=== PATIENT | male | born 1950 | race Caucasian/White ===

== ENCOUNTER 2017-05-02 14:25 | Emergency (ER) | payer MEDICARE ==
[2017-05-02] MEDS ORDERED: TORADOL IM ONE (17:33)
[2017-05-02] MEDS ORDERED: DELTASONE PO ONE (17:34)
--- NOTE | 2017-05-02 18:42 | Emergency Department Report ---
ED Lower Extremity HPI - General Chief Complaint: Extremity Injury, Lower Stated Complaint: FOOT PAIN Time Seen by Provider: 05/02/17 17:24 Source: patient, EMS Mode of arrival: Wheelchair Limitations: Physical Limitation - History of Present Illness Initial Comments: pt is a 66 y/o mail with hx of Asthma, CHF, COPD, DMII, and HIV pos who presents for left ankle pain and swelling s/p glf 3 days ago pt endorses unable to ambulate , pt does indorse hx of gout, pt advises that he call the ambulance to hospital today because he can no longer walk on ankle, pain is 8/10 aching throbbing tingling. Complaint: ankle injury Onset/Timin -: days(s) Injury: Leg: Left (left lateral lower leg pain swelling no ecchymosis no stepoff no ), Ankle: Left (left lateral ankle pain and swelling ) Type of Injury: other (fall Ground Level ) Place: home Severity: moderate Severity scale (0 -10): 7 Improves With: nothing Worsens With: weight bearing, movement, palpation Context: fall Associated Symptoms: swelling, tingling, unable to bear weight - Related Data Previous Rx's Medication Instructions Recorded Last Taken Type Aspirin [Aspirin TAB] 325 mg PO QDAY #30 tablet 01/15/14 Unknown Rx metFORMIN [Glucophage] 500 mg PO DAILY #30 tablet 01/15/14 Unknown Rx Acetaminophen/Codeine [Tylenol 1 tab PO Q6H PRN #30 tab 05/02/17 Unknown Rx /Codeine # 3 tab] Allergies Allergy/AdvReac Type Severity Reaction Status Date / Time No Known Allergies Allergy Verified 05/02/17 15:02 ED Review of Systems ROS: Stated complaint: FOOT PAIN Other details as noted in HPI Constitutional: denies: chills, fever Eyes: denies: eye pain, eye discharge, vision change ENT: denies: ear pain, throat pain Respiratory: denies: cough, shortness of breath, wheezing Cardiovascular: denies: chest pain, palpitations Endocrine: no symptoms reported Gastrointestinal: denies: abdominal pain, nausea, diarrhea Genitourinary: denies: urgency, dysuria Musculoskeletal: joint swelling, arthralgia. denies: back pain, myalgia Skin: denies: rash, lesions Neurological: denies: headache, weakness, paresthesias Psychiatric: denies: anxiety, depression Hematological/Lymphatic: denies: easy bleeding, easy bruising ED Past Medical Hx - Past Medical History Hx Congestive Heart Failure: No Hx Diabetes: Yes Hx Asthma: No Hx COPD: No Hx HIV: No - Social History Smoking Status: Never Smoker Substance Use Type: None - Medications Home Medications: Home Medications Medication Instructions Recorded Confirmed Last Taken Type Aspirin [Aspirin TAB] 325 mg PO QDAY #30 tablet 01/15/14 Unknown Rx metFORMIN [Glucophage] 500 mg PO DAILY #30 tablet 01/15/14 Unknown Rx Acetaminophen/Codeine [Tylenol 1 tab PO Q6H PRN #30 tab 05/02/17 Unknown Rx /Codeine # 3 tab] ED Physical Exam - General Limitations: Physical Limitation General appearance: alert, in no apparent distress - Head Head exam: Present: atraumatic, normocephalic - Eye Eye exam: Present: normal appearance, PERRL, EOMI - ENT ENT exam: Present: mucous membranes moist - Neck Neck exam: Present: normal inspection - Respiratory Respiratory exam: Present: normal lung sounds bilaterally. Absent: respiratory distress - Cardiovascular Cardiovascular Exam: Present: regular rate, normal rhythm. Absent: systolic murmur, diastolic murmur, rubs, gallop - GI/Abdominal GI/Abdominal exam: Present: soft, normal bowel sounds - Rectal Rectal exam: Present: deferred - Extremities Exam Extremities exam: Present: normal inspection, tenderness, normal capillary refill. Absent: calf tenderness - Expanded Lower Extremity Exam Left Hip exam: Present: normal inspection, full ROM Upper Leg exam: Present: normal inspection, full ROM Knee exam: Present: normal inspection, full ROM Lower Leg exam: Present: tenderness, swelling. Absent: abrasion, laceration, ecchymosis, deformity, crepidus, dislocation, erythema, palpable cord, Charity's sign Ankle exam: Present: tenderness, swelling, abrasion. Absent: laceration, ecchymosis, deformity, crepidus, dislocation, erythema, anterior draw sign Foot/Toe exam: Present: normal inspection Neuro vascular tendon exam: Present: no vascular compromise. Absent: pulse deficit, abnormal cap refill, motor deficit, sensory deficit, tendon deficit, extremity cold to touch, pallor, abnormal 2-point discrimination, decreased fine /light touch, foot drop, peroneal nerve deficit, significant pain with passive ROM of distal joint Gait: Positive: unable to bear weight - Back Exam Back exam: Present: normal inspection, full ROM. Absent: tenderness, CVA tenderness (R), CVA tenderness (L), muscle spasm, paraspinal tenderness, vertebral tenderness, rash noted - Neurological Exam Neurological exam: Present: alert, oriented X3, CN II-XII intact, reflexes normal - Psychiatric Psychiatric exam: Present: normal affect, normal mood - Skin Skin exam: Present: warm, dry, intact, normal color. Absent: rash ED Course Vital Signs 05/02/17 05/02/17 15:02 17:59 Temperature 98.6 F Pulse Rate 99 H Respiratory 20 18 Rate Blood Pressure 166/103 O2 Sat by Pulse 100 Oximetry ED Lower Extremity MDM - Medical Decision Making pt is a 66 y/o mail with hx of Asthma, CHF, COPD, DMII, and HIV pos who presents for left ankle pain and swelling s/p glf 3 days ago pt endorses unable to ambulate , pt does indorse hx of gout, pt advises that he call the ambulance to hospital today because he can no longer walk on ankle, pain is 8/10 aching throbbing tingling. 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 will call tomorrow to set appointment, pt verbalized agreement and understanding with same. pt did presents with htn episode today advises that he has not had bp medication today pt advised to take all medications as prescribed and to take medication upon arrival to home, pt verbalized agreement and understanding of same. 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 pt has family to assist with follow up appointment. pt is a/ox 3 with nad at this time. Critical care attestation.: If time is entered above; I have spent that time in minutes in the direct care of this critically ill patient, excluding procedure time. ED Disposition Clinical Impression: Closed nondisp spiral fracture of shaft of fibula with routine healing Qualifiers: Laterality: left Qualified Code(s): S82.445D - Nondisplaced spiral fracture of shaft of left fibula, subsequent encounter for closed fracture with routine healing Disposition: TO HOME OR SELFCARE Is pt being admited?: No Does the pt Need Aspirin: No Condition: Good Instructions: Leg Fracture (ED) Prescriptions: Acetaminophen/Codeine [Tylenol /Codeine # 3 tab] 1 tab PO Q6H PRN #30 tab PRN Reason: Pain Referrals: PRIMARY CAREMD [Primary Care Provider] - 3-5 Days DEIRDRE KEATING MD [Staff Physician] - 3-5 Days Time of Disposition: 21:32
[2017-05-03] MEDS ORDERED: TYLENOL PO ONE (00:26)
[2017-05-03 00:38] VITALS: BP 157/91
--- NOTE | 2017-05-03 07:43 | XRay Report ---
LEFT ANKLE RADIOGRAPHS INDICATION: Left ankle pain, swelling. Status post fall. COMPARISON: None similar. FINDINGS: AP, lateral and oblique left ankle radiographs demonstrate distal fibular shaft spiral fracture, approximately 5 cm proximal to the lateral malleolus with minimal, approximately 1 mm cortical offset. Intact ankle mortise, though comminuted fracture lucencies involve the medial malleolus, most prominent horizontal with approximately 3 mm thickness. Diffuse ankle soft tissue swelling noted, medial more than lateral and also extending to the foot as also the lower leg. Normal talar dome contour. Approximately 5 mm plantar calcaneal spur. Slight atherosclerotic calcifications. Osteopenia not excluded. CONCLUSION: Left distal fibular shaft spiral and medial malleolar acute fractures noted with diffuse soft tissue swelling and other findings, as described. Intact ankle mortise. Please correlate. Thank you for the opportunity to participate in this patient's care.
== END 2017-05-03 00:36 | disposition home or self-care (01) ==
LOC: ED 14:25
DX: S82.445D Nondisplaced spiral fracture of shaft of left fibula, subsequent encounter for closed fracture with routine healing (principal); E11.9 Type 2 diabetes mellitus without complications; J45.909 Unspecified asthma, uncomplicated; I50.9 Heart failure, unspecified; Z79.82 Long term (current) use of aspirin; W18.30XA Fall on same level, unspecified, initial encounter; Y93.89 Activity, other specified; Y99.8 Other external cause status; Y92.009 Unspecified place in unspecified non-institutional (private) residence as the place of occurrence of the external cause
CPT/HCPCS: 29515; 73610; 96372; 99284; J1885; J7512

== ENCOUNTER 2017-05-03 11:16 | Emergency (ER) | payer MEDICARE ==
[2017-05-03 11:40] VITALS: BP 157/98
== END 2017-05-03 12:15 | disposition left against medical advice (07) ==
LOC: ED 11:16
DX: M79.605 Pain in left leg (principal); Z53.21 Procedure and treatment not carried out due to patient leaving prior to being seen by health care provider

== ENCOUNTER 2017-05-09 18:33 | Emergency (ER) | payer MEDICARE ==
[2017-05-09 19:45] LABS: Hematocrit 38.8 % (35.5-45.6); Mean Corpuscular HGB Conc 33 % (32-34); Mean Corpuscular Hemoglobin 31 pg (28-32); Mean Corpuscular Volume 91 fl (84-94); Platelet Count 323 K/mm3 (140-440); Red Blood Count 4.25 M/mm3 (3.65-5.03); Red Cell Distribution Width 13.1 % (13.2-15.2); White Blood Count 7.8 K/mm3 (4.5-11.0)
[2017-05-09 19:59] LABS: Anion Gap 22 mmol/L; BUN/Creatinine Ratio 13.75; Blood Urea Nitrogen 11 mg/dL (9-20); Calcium 9.7 mg/dL (8.4-10.2); Carbon Dioxide 25 mmol/L (22-30); Chloride 101.3 mmol/L (98-107); Glucose 204 mg/dL (75-100); Sodium 144 mmol/L (137-145)
[2017-05-09] MEDS ORDERED: NORCO 5/325 PO ONE (22:26)
--- NOTE | 2017-05-09 22:30 | Emergency Department Report ---
HPI - General Chief Complaint: Extremity Injury, Lower Time Seen by Provider: 05/09/17 22:15 - HPI HPI: Room 9 Patient is a 66-year-old male presenting with a chief complaint left ankle pain. The patient sustained a left distal fibula and medial malleolus fracture 05/03/2017. The patient was placed on a splint and given a referral to orthopedic surgery. The patient states today while reaching above his head he lost his footing and slipped and fell again injuring his left lower extremity. The patient states the splint had gotten wet and so he removed it. Patient denies any other complaints. The patient currently gets his pain a score of 4/ 10 Location: Left lower extremity Duration: [see above] Quality: Pain Severity: 4/10 Modifying factors: [see above] Context: [see above] Mode of transportation: Unknown ED Past Medical Hx - Past Medical History Previous Medical History?: Yes Hx Diabetes: Yes - Surgical History Past Surgical History?: No - Family History Family history: no significant - Social History Smoking Status: Never Smoker Substance Use Type: None - Medications Home Medications: Home Medications Medication Instructions Recorded Confirmed Last Taken Type Aspirin [Aspirin TAB] 325 mg PO QDAY #30 tablet 01/15/14 Unknown Rx metFORMIN [Glucophage] 500 mg PO DAILY #30 tablet 01/15/14 Unknown Rx Acetaminophen/Codeine [Tylenol 1 tab PO Q6H PRN #30 tab 05/02/17 Unknown Rx /Codeine # 3 tab] HYDROcodone/APAP 5-325 [[place] 1 - 2 each PO Q6HR PRN #20 tablet 05/09/17 Unknown Rx 5/325] ED Review of Systems ROS: Stated complaint: PAIN TO LEFT LEG Other details as noted in HPI Comment: All other systems reviewed and negative Constitutional: denies: chills, fever Eyes: denies: eye pain, eye discharge, vision change ENT: denies: ear pain, throat pain Respiratory: denies: cough, shortness of breath, wheezing Cardiovascular: denies: chest pain, palpitations Endocrine: no symptoms reported Gastrointestinal: denies: abdominal pain, nausea, diarrhea Genitourinary: denies: urgency, dysuria Musculoskeletal: arthralgia Skin: denies: rash, lesions Neurological: denies: headache, weakness, paresthesias Psychiatric: denies: anxiety, depression Hematological/Lymphatic: denies: easy bleeding, easy bruising Physical Exam - Physical Exam Vital Signs: Vital Signs 05/09/17 18:51 Temperature 97.7 F Pulse Rate 99 H Respiratory 18 Rate Blood Pressure 175/103 O2 Sat by Pulse 97 Oximetry Physical Exam: GENERAL: The patient is well-developed well-nourished male lying on stretcher not appearing to be in acute distress. [] HEENT: Normocephalic. Atraumatic. NECK: Supple. Trachea midline CHEST/LUNGS: Clear to auscultation. There is no respiratory distress noted. HEART/CARDIOVASCULAR: Regular. There is no tachycardia. There is no gallop rub or murmur. ABDOMEN: Abdomen is soft, nontender. Patient has normal bowel sounds. There is no abdominal distention. SKIN: There is no rash. There is no diaphoresis. NEURO: The patient is awake, alert, and oriented. The patient is cooperative. The patient has normal speech MUSCULOSKELETAL: There is tenderness to palpation of the left ankle. ED Course Vital Signs 05/09/17 18:51 Temperature 97.7 F Pulse Rate 99 H Respiratory 18 Rate Blood Pressure 175/103 O2 Sat by Pulse 97 Oximetry ED Medical Decision Making - Lab Data Result diagrams: 05/09/17 19:23 05/09/17 19:23 - Radiology Data Radiology results: image reviewed (left ankle x-ray) interpreted by me: Left ankle [id number] fibula spiral fracture, medial malleolus fracture - Differential Diagnosis ankle fracture Critical care attestation.: If time is entered above; I have spent that time in minutes in the direct care of this critically ill patient, excluding procedure time. ED Disposition Clinical Impression: Closed fracture of left distal fibula, Fracture of ankle, medial malleolus, left, closed Disposition: DC-01 TO HOME OR SELFCARE Is pt being admited?: No Does the pt Need Aspirin: No Condition: Stable Instructions: Ankle Fracture (ED) Additional Instructions: Return to the emergency department immediately should you develop worsening symptoms, fever, inability to tolerate food or liquid or any other concerns. Prescriptions: HYDROcodone/APAP 5-325 [[place] 5/325] 1 - 2 each PO Q6HR PRN #20 tablet PRN Reason: Pain Referrals: DEIRDRE LORENZO MD [Staff Physician] - SIM Time of Disposition: 22:40
--- NOTE | 2017-05-09 22:40 | XRay Report ---
FINAL REPORT PROCEDURE: XR ANKLE 2V LT TECHNIQUE: LEFT ankle radiographs, AP, lateral, HISTORY: ankle pain post fall COMPARISON: No prior studies are available for comparison. FINDINGS: Fracture (s) and/or Dislocation(s): Distal tibia fracture of the medial malleolus. Oblique fracture of the distal fibula. Alignment: Mild widening of the ankle mortise. Joint space(s): Normal. Soft tissues: Swelling. Bone mineralization: Normal. Foreign bodies: None. Calcaneal spurring: None. IMPRESSION: Distal tibia and fibula fractures..
[2017-05-10 02:44] VITALS: BP 160/90
== END 2017-05-10 03:00 | disposition home or self-care (01) ==
LOC: ED 18:33
DX: S82.832A Other fracture of upper and lower end of left fibula, initial encounter for closed fracture (principal); S82.52XA Displaced fracture of medial malleolus of left tibia, initial encounter for closed fracture; E11.9 Type 2 diabetes mellitus without complications; W01.0XXA Fall on same level from slipping, tripping and stumbling without subsequent striking against object, initial encounter; Y93.89 Activity, other specified; Y92.89 Other specified places as the place of occurrence of the external cause; Y99.8 Other external cause status
CPT/HCPCS: 36415; 80048; 82805; 82962; 85027; 99285

== ENCOUNTER 2018-04-17 18:23 | Emergency (ER) | payer MEDICARE, MEDICAID ==
[~2018-04-17 18:23] MED LIST: ADRENALIN ONE
--- NOTE | 2018-04-17 19:28 | Emergency Department Report ---
ED CPR HPI - General Chief Complaint: Cardiac Arrest/CPR Stated Complaint: STEMI Time Seen by Provider: 04/17/18 19:02 Source: EMS (verbal report received from EMS.ems notes not available at time of chart dictation) Mode of arrival: Stretcher Limitations: Altered Mental Status, Physical Limitation - History of Present Illness Initial Comments: This is a 67-year-old gentleman who was brought to the hospital by EMS as out of hospital cardiac arrest. His last known well time is not known. EMS reports that they arrived at the patient's home, and he was not breathing and he was pulseless. He received bag valve mask ventilation. He received standard ACLS interventions. Upon arrival to the ER, the patient is pulseless, apneic, and does not have a shockable rhythm. He received standard ACLS interventions. He receives high quality CPR. Unfortunately, return of spontaneous circulation could not be obtained. Resuscitation efforts were terminated secondary to medical futility. MD Complaint: found unresponsive -: unknown Initial Findings in the Field: no pulse Treatments Prior to Arrival: BMV, chest compressions, epinephrine mgs # - Related Data Previous Rx's Medication Instructions Recorded Last Taken Type Aspirin [Aspirin TAB] 325 mg PO QDAY #30 tablet 01/15/14 Unknown Rx Lisinopril [Zestril TAB] 10 mg PO QDAY #30 tablet 05/21/17 Unknown Rx metFORMIN [Glucophage] 500 mg PO BID #30 tablet 05/21/17 Unknown Rx oxyCODONE /ACETAMINOPHEN [Percocet 1 tab PO TID PRN #21 tablet 05/21/17 Unknown Rx 5/325 mg] Allergies Allergy/AdvReac Type Severity Reaction Status Date / Time No Known Allergies Allergy Verified 05/03/17 11:36 ED Review of Systems ROS: Stated complaint: STEMI Other details as noted in HPI Comment: Unobtainable due to pts medical conditions ED Past Medical Hx - Past Medical History Hx Congestive Heart Failure: No Hx Diabetes: Yes Hx Asthma: No (see note below) Hx COPD: No Hx HIV: No - Social History Smoking Status: Never Smoker - Medications Home Medications: Home Medications Medication Instructions Recorded Confirmed Last Taken Type Aspirin [Aspirin TAB] 325 mg PO QDAY #30 tablet 14 05/17/17 Unknown Rx Lisinopril [Zestril TAB] 10 mg PO QDAY #30 tablet 05/21/17 Unknown Rx metFORMIN [Glucophage] 500 mg PO BID #30 tablet 05/21/17 Unknown Rx oxyCODONE /ACETAMINOPHEN [Percocet 1 tab PO TID PRN #21 tablet 05/21/17 Unknown Rx 5/325 mg] ED Physical Exam - General Limitations: Altered Mental Status, Physical Limitation General appearance: other (nonverbal, GCS of 3, receiving bag valve mask ventilation) - Head Head exam: Present: atraumatic, normocephalic - Eye Eye exam: Present: other (pupils are fixed and dilated) - ENT ENT exam: Present: other (copious vomitus material noted around the oropharynx) - Neck Neck exam: Present: normal inspection - Respiratory Respiratory exam: Present: other (no breath sounds are noted) - Cardiovascular Cardiovascular Exam: Present: other (patient is pulseless) - GI/Abdominal GI/Abdominal exam: Present: distended - exam: Present: normal inspection External exam: Present: normal external exam - Extremities Exam Extremities exam: Present: normal inspection (patient has a intraosseous IV noted in the left lower extremity) - Back Exam Back exam: Present: normal inspection - Neurological Exam Neurological exam: Present: other (nonverbal, GCS of 3, receiving bag valve mask ventilation) - Psychiatric Psychiatric exam: Present: other (patient is nonverbal) - Skin Skin exam: Present: dry ED Medical Decision Making - Medical Decision Making Differential diagnosis, including but not limited to: Acute coronary syndrome, intracranial hemorrhage, pulmonary embolus, sepsis, hemorrhagic shock Critical care attestation.: If time is entered above; I have spent that time in minutes in the direct care of this critically ill patient, excluding procedure time. ED Disposition Clinical Impression: Cardiac arrest Disposition: DC-20 Is pt being admited?: No Does the pt Need Aspirin: No Condition: Undetermined Referrals: PRIMARY CARE,MD [Primary Care Provider] - 3-5 Days
== END 2018-04-17 21:14 ==
LOC: ED 18:23
DX: I46.9 Cardiac arrest, cause unspecified (principal); E11.9 Type 2 diabetes mellitus without complications; Z79.82 Long term (current) use of aspirin
CPT/HCPCS: 92950; 99285; J0171